=== PATIENT | female | born 1985 | race Two or more races ===

== ENCOUNTER 2024-09-10 09:45 | Emergency (ER) | payer OTHER ==
[~2024-09-10] VITALS: Ht 167.6 cm; Wt 62.6 kg
[~2024-09-10 09:45] MED LIST: INTESTINEX1 CA1 PO; PREVACID30 MG PO
[2024-09-10] MEDS ORDERED: ACETAMINOPHEN 325 MG TABLET PO ONE (11:15)
[2024-09-10] MEDS ORDERED: MONTELUKAST SODIUM 10 MG TABLET PO ONE (11:15)
[2024-09-10] MEDS ORDERED: METHYLPREDNISOLONE SOD SUCC 125 MG VIAL IV ONE (11:15)
[2024-09-10] MEDS ORDERED: BENZONATATE 200 MG CAPSULE PO ONE (11:15)
[2024-09-10] MEDS ORDERED: LEVALBUTEROL HCL 1.25 MG/3 ML SOLUTION IH ONE ×2 (11:15→12:41)
[2024-09-10] MEDS ORDERED: FAMOtidine 10 MG/ML (4ML VIAL) IV ONE (11:15)
[2024-09-10] MEDS ORDERED: IPRATROPIUM BROMIDE 0.5 MG/2.5 ML AMPUL.NEB IH ONE ×2 (11:15→12:41)
[2024-09-10] MEDS ORDERED: 0.9 % SODIUM CHLORIDE 1,000 ML IV ONE (11:15)
[2024-09-10] MEDS ORDERED: CEFTRIAXONE SODIUM 1,000 MG VIAL IV ONE (11:15)
[2024-09-10] MEDS ORDERED: ACETAMINOPHEN 500 MG GEL..CAP PO ONE (11:35)
[2024-09-10] MEDS ORDERED: FAMOTIDINE/PF 20 MG/2 ML VIAL ONE (11:36)
[2024-09-10] MEDS ORDERED: WATER FOR INJ.,BACTERIOSTATIC 30 ML VIAL IJ ONE (11:36)
[2024-09-10] MEDS ORDERED: METHYLPREDNISOLONE SOD SUCC 125 MG VIAL ONE (11:36)
[2024-09-10] MEDS ORDERED: CEFTRIAXONE SODIUM 1,000 MG VIAL ONE (11:36)
[2024-09-10 12:04] LABS: HEMATOCRIT 38.4 % (36.0-45.00); HEMOGLOBIN 12.4 g/dL (12.0-15.00); MEAN CELL VOLUME 84.8 fL (80.00-100.00); MEAN CORPUSCULAR HEMOGLOBIN 27.5 pg (27.00-32.0); MEAN CORPUSCULAR HGB CONC 32.4 g/dl (32.0-36.0); PLATELET COUNT 202 K/uL (150-450); RED BLOOD COUNT 4.52 M/uL (4.00-6.00); RED CELL DISTRIBUTION WIDTH 15.1 % (11.5-14.5)
[2024-09-10] MEDS ORDERED: MEDROLPACK PO (12:47)
[2024-09-10] MEDS ORDERED: PEPCID AC20 MG PO (12:47)
[2024-09-10] MEDS ORDERED: BENZONATATE200 M1 PO (12:47)
[2024-09-10] MEDS ORDERED: AZITHROMYCIN500 MG PO (12:47)
[2024-09-10] MEDS ORDERED: SINGULAIR10 MG PO (12:47)
[2024-09-10] MEDS ORDERED: LEVALBUTER0.63 MG/3 IH (12:47)
== END 2024-09-10 13:24 | disposition home or self-care (01) ==
LOC: ER 09:46
PROVIDERS: General Practice
DX: J40 Bronchitis, not specified as acute or chronic (principal); Z20.822 Contact with and (suspected) exposure to COVID-19